=== PATIENT | male | born 2000 | race Caucasian/White ===

== ENCOUNTER 2021-05-01 19:47 | Emergency (ER) | payer BC ==
[2021-05-01] MEDS ORDERED: Ibuprofen 200 MG TAB ONE (21:54)
[2021-05-02] MEDS ORDERED: PROPOFOL 20 ML ONE (00:58)
[2021-05-02] MEDS ORDERED: Fentanyl 100 MCG/2 ML VIAL ONE (00:58)
== END 2021-05-01 22:00 | disposition home or self-care (01) ==
LOC: CSHERS 19:47
DX: S52.514A Nondisplaced fracture of right radial styloid process, initial encounter for closed fracture (principal); S82.891A Other fracture of right lower leg, initial encounter for closed fracture; E10.9 Type 1 diabetes mellitus without complications; W18.30XA Fall on same level, unspecified, initial encounter
CPT/HCPCS: 29125; J2704; J3010